=== PATIENT | male | born 1945 | race Caucasian/White ===

== ENCOUNTER → 2018-09-18 10:40 | Outpatient (CLI) | payer MEDICARE, SELFPAY ==
--- NOTE | 2018-09-18 | DI.RAD.S_ITS ---
PROCEDURE: XR KNEE STANDING BI INDICATIONS: Chronic pain in both knees TECHNIQUE: AP standing view of bilateral knees. COMPARISON: [facility], , KNEE 1-2 VIEWS RIGHT, 02/15/2014, 12:33. FINDINGS: Bones: There is [id number] bilateral tricompartmental osteoarthritis more prominent in lateral femoral tibial compartment of right knee and medial femorotibial compartment of left knee. Soft tissues: No suspicious soft tissue calcification. IMPRESSION: Mild to moderate bilateral knee joint osteoarthritis as described above. Dictated by: Ed Machuca M.D. on 09/18/2018 at 12:50 Approved by: Ed Machuca M.D. on 09/18/2018 at 12:53
--- NOTE | 2018-09-18 | DI.RAD.S_ITS ---
PROCEDURE: XR KNEE LT 3V INDICATIONS: Chronic pain in both knees TECHNIQUE: 3 views of the knee were acquired. COMPARISON: [facility], , KNEE 1-2 VIEWS RIGHT, 02/15/2014, 12:33. FINDINGS: Bones: [id number]-uv-tbrdwjld tricompartment osteoarthritis is seen more prominent in the medial femorotibial compartment. No fractures or dislocations. No suspicious bony lesions. No significant patellar subluxation. Soft tissues: No joint effusion. No suspicious soft tissue calcifications. IMPRESSION: Aefi-jz-mnsmjdbl tricompartment osteoarthritis. Dictated by: Ed Machuca M.D. on 09/18/2018 at 13:14 Approved by: Ed Machuca M.D. on 09/18/2018 at 13:15
--- NOTE | 2018-09-18 | DI.RAD.S_ITS ---
PROCEDURE: XR KNEE RT 3V INDICATIONS: Chronic pain in both knees TECHNIQUE: 3 views of the knee were acquired. COMPARISON: [facility], , KNEE 1-2 VIEWS RIGHT, 02/15/2014, 12:33. FINDINGS: Bones: Vcoh-[id number] tricompartment osteoarthritis is seen more prominent in the medial femorotibial compartment. No fractures or dislocations. No suspicious bony lesions. No significant patellar subluxation. Soft tissues: No joint effusion. No suspicious soft tissue calcifications. IMPRESSION: Ybrj-zm-sizxkwwd tricompartment osteoarthritis. Finding is progressed since 2014 study. Dictated by: Ed Machuca M.D. on 09/18/2018 at 12:53 Approved by: Ed Machuca M.D. on 09/18/2018 at 12:54
== END ==
PROVIDERS: Family Provider Family Medicine; PCP Family Medicine; Visit Provider Family Medicine
DX: M25.561 Pain in right knee (principal); M25.562 Pain in left knee; M17.0 Bilateral primary osteoarthritis of knee; G89.29 Other chronic pain
CPT/HCPCS: 73562; 73565

== ENCOUNTER → 2018-11-04 10:05 | Outpatient (CLI) | payer MEDICARE, SELFPAY ==
--- NOTE | 2018-11-04 | DI.RAD.S_ITS ---
PROCEDURE: XR CHEST 2V INDICATIONS: Presence of other heart-valve replacement TECHNIQUE: 2 views of the chest were acquired. COMPARISON: None. FINDINGS: Surgical changes and devices: Postsurgical changes are demonstrated in the mediastinum. Lungs and pleura: There is an ovoid opacity in the left lung base measuring up to approximately 9.5 cm. No pleural effusions or pneumothorax. Mediastinum: Mediastinal contours are normal. Heart size is normal. Bones and chest wall: No suspicious bony abnormalities. Soft tissues appear unremarkable. IMPRESSION: 1. Large ovoid opacity in the left lung base may represent a diaphragmatic hernia, mass, or confluent consolidation. Recommend further evaluation with CT. Dictated by: Lux Berry M.D. on 11/04/2018 at 11:08 Approved by: Lux Berry M.D. on 11/04/2018 at 11:10
== END ==
PROVIDERS: PCP Family Medicine; Visit Provider Internal Medicine Cardiovascular Disease
DX: I35.0 Nonrheumatic aortic (valve) stenosis (principal); I10 Essential (primary) hypertension; I48.0 Paroxysmal atrial fibrillation; R06.02 Shortness of breath; R05 Cough; Z95.4 Presence of other heart-valve replacement
CPT/HCPCS: 71046

== ENCOUNTER → 2020-11-02 08:36 | Outpatient (CLI) | payer MEDICARE, SELFPAY ==
[2020-11-02 10:22] LABS: Free T3, Triiodothyronine Free 3.86 pg/mL (2.77-5.27); Free T4, Direct Thyroxine 0.95 ng/dL (0.78-2.19)
[2020-11-06 14:14] LABS: Immunoglobulin A, Serum 217 mg/dL (61-437); Immunoglobulin G,Serum 977 mg/dL (603-1613); Immunoglobulin M, Serum 100 mg/dL (15-143)
== END ==
PROVIDERS: PCP Family Medicine; Referring Provider Internal Medicine Cardiovascular Disease; Visit Provider Internal Medicine Cardiovascular Disease
DX: R73.09 Other abnormal glucose (principal); I48.0 Paroxysmal atrial fibrillation; E03.2 Hypothyroidism due to medicaments and other exogenous substances; I35.0 Nonrheumatic aortic (valve) stenosis
CPT/HCPCS: 36415; 82784; 83036; 84155; 84439; 84481; 86334

== ENCOUNTER → 2021-11-19 07:07 | Outpatient (CLI) | payer MEDICARE, SELFPAY ==
[2021-11-19 20:49] LABS: COVID19 - ORCAS (NP or Nasal) Negative (Negative)
== END ==
PROVIDERS: PCP Family Medicine; Visit Provider Family Medicine
DX: Z20.822 Contact with and (suspected) exposure to COVID-19 (principal)
CPT/HCPCS: C9803; U0003